=== PATIENT | female | born 1980 | race African-American/Black ===

== ENCOUNTER 2021-11-03 14:07 | Emergency (ER) | payer MEDICAID ==
[~2021-11-03] VITALS: Ht 177.8 cm; Wt 95.0 kg
[2021-11-03 18:01] LABS: HEMATOCRIT. 44.5 % (36.0-48.0); HEMOGLOBIN. 14.2 g/dL (12.0-16.0); MEAN CORPUSCULAR HEMOGLOBIN 22.5 pg (28.0-32.0); MEAN CORPUSCULAR VOLUME 70.6 fL (81.0-99.0); MEAN PLATELET VOLUME 8.8 fl (7.4-10.4); PLATELET 293 x1000/uL (130-400); RED BLOOD CELL COUNT 6.31 mill/uL (4.2-5.4); RED CELL DISTRIBUTION WIDTH 15.8 % (11.6-14.6)
[2021-11-03 18:09] LABS: CHLORIDE 106 mEq/L (98-107)
[2021-11-03 18:16] LABS: CLARITY URINE CLOUDY (CLEAR); COLOR URINE DARK YELLOW (YELLOW); KETONES URINE TRACE (NEGATIVE); LEUKOCYTE ESTERASE URINE TRACE (NEGATIVE); NITRITE URINE NEGATIVE (NEGATIVE); OCCULT BLOOD URINE TRACE (NEGATIVE); PH URINE 5.5 (4.5-8.0); PROTEIN URINE 2+ (NEGATIVE); SPECIFIC GRAVITY URINE 1.033 (1.005-1.030)
[2021-11-03] MEDS ORDERED: NAPR-681 PO (19:05)
[2021-11-03] MEDS ORDERED: NITR100C PO (19:05)
[2021-11-03 19:27] VITALS: BP 112/76
[2021-11-03 19:37] LABS: PLATELET ESTIMATE NORMAL
== END 2021-11-03 19:29 | disposition home or self-care (01) ==
LOC: ER 14:07
DX: R51.9 Headache, unspecified (principal); R42 Dizziness and giddiness; R82.71 Bacteriuria; Z98.890 Other specified postprocedural states; Z79.899 Other long term (current) drug therapy
CPT/HCPCS: 36415; 80048; 81003; 85025; 99283